=== PATIENT | female | born 1960 | race Caucasian/White ===

== ENCOUNTER 2016-09-25 04:53 | Observation (INO) ==
--- NOTE | 2016-09-25 05:26 | Emergency Department Note ---
Disposition Clinical Impression: Shoulder pain, acute Qualifiers: Laterality: right Qualified Code(s): M25.511 - Pain in right shoulder Disposition: Still a Patient Condition: Undetermined Referrals: Agustin Jacobo MD [Primary Care Provider] - Forms: ED Satisfaction Letter General Adult HPI - General Chief complaint: ED Extremity Injury, Upper Stated complaint: "Right Shoulder Pain/Can't Raise Arm" Time Seen by Provider: 09/25/16 05:02 Source: patient Limitations: no limitations Nursing Notes Reviewed: Yes Vital Signs Reviewed: Yes - History of Present Illness HPI Narrative: 56-year-old female who reports she has had 2 days of atraumatic right shoulder pain. She denies having pain in that shoulder before. She also states that yesterday she had a fever but none today. She does mention that she has had a cough and has been on antibiotics. She says she has pain on any movement of the shoulder. She denies having any problems with that shoulder in the past. She denies any trauma to the shoulder. She denies any immunocompromised state such as diabetes. Radiation: non-radiation Pain Severity: severe Pain Scale: 10 Consistency: constant Improves with: rest Worsens with: movement Associated symptoms: Reports: denies other symptoms Treatments Prior to Arrival: none - Related Data Home Medications Medication Instructions Recorded Confirmed Cyclobenzaprine [Flexeril] 10 mg PO BID 01/02/15 01/18/16 Gabapentin [Neurontin] 600 mg PO TID 01/02/15 01/18/16 Levothyroxine [Synthroid] 100 mcg PO DAILY 01/02/15 01/18/16 Lisinopril [Zestril] 40 mg PO DAILY 01/02/15 01/18/16 Omeprazole [PriLOSEC] 40 mg PO DAILY 01/02/15 01/18/16 Pantoprazole Sodium 40 mg PO DAILY 01/02/15 01/18/16 Torsemide [Demadex] 20 mg PO DAILY 01/02/15 01/18/16 Primidone [Mysoline] 50 mg PO BID 01/14/16 01/18/16 Ropinirole HCl [Requip] 0.5 mg PO HS 01/14/16 01/18/16 Sennosides [Senna] 17.2 mg PO BID 01/14/16 01/18/16 Previous Rx's Medication Instructions Recorded Aspirin Enteric Coated [Aspirin EC] 325 mg PO DAILY #21 tablet. 01/14/16 ALPRAZolam [Xanax 0.5 MG Tablet] 0.5 mg PO HS #20 tablet 01/16/16 levoFLOXacin [Levofloxacin] 750 mg PO DAILY #3 tablet 01/20/16 traMADol [Ultram] 50 mg PO Q6H PRN #10 tablet 01/20/16 Allergies Allergy/AdvReac Type Severity Reaction Status Date / Time doxycycline Allergy Nausea Verified 01/18/16 11:53 All systems ED: reviewed and negative except as stated. Constitutional: Reports: fever Eyes: Denies: vision change ENT ED: Denies: throat pain Cardiovascular: Denies: chest pain Respiratory: Reports: cough Gastrointestinal: Denies: abdominal pain, nausea, vomiting Genitourinary: Denies: dysuria Musculoskeletal: Denies: back pain Integumentary: Denies: rash Past Medical History - Past Medical History Medical history: Reports: arthritis, asthma, COPD, fibromyalgia, GERD, hypertension, osteoporosis, RA, thyroid disease, other Surgical history: Reports: knee replacement, orthopedic, other (Spine surgery.) , other (Tubal ligation.6. EGD.) Psychiatric history: Reports: anxiety, depression, other - Social History Smoking Status: Former smoker Smokeless Tobacco Status: No Alcohol use: Reports: none Drug use: Reports: none Physical Exam - General Limitations: no limitations General appearance: alert, in no apparent distress - Head Head exam: atraumatic - Eye Eye exam: Present: normal appearance, PERRL - ENT ENT exam: normal exam, normal oropharynx - Neck Neck exam: Present: normal inspection - Chest Chest inspection: Present: normal inspection - Respiratory Respiratory exam: Present: normal lung sounds bilaterally. Absent: respiratory distress - Cardiovascular Cardiovascular exam: Present: regular rate, normal rhythm - Abdominal Exam Abdominal exam: Present: soft, Non-Tender - Extremities Exam Extremities exam: Present: normal inspection, other (No erythema of the shoulder is present. It is slightly warm to the touch. There is no crepitus. She has most pain on attempted abduction. She also has pain in every other plane of movement.) - Back Exam Back exam: Present: normal inspection - Neurological Exam Neurological exam: Present: alert, oriented X3 - Psychiatric Psychiatric exam: Present: normal affect, normal mood - Skin Skin exam: Present: warm, dry Course Course Narrative: Due to the fever that she had yesterday and atraumatic shoulder pain with some mild warmth of the shoulder I will obtain an ESR and a CRP and a CBC. This is to evaluate for possible septic joint. I will also obtain a CT scan of the shoulder to look for anatomic abnormalities. Pulses 2+ in UE bilaterally. Full sensation in hands bilaterally. - Reevaluation(s) Reevaluation #1: Elevated ESR and CRP. Arthrocentesis attempted without success. Spoke with Dr Bautista who recommended a stat MRI of the shoulder and he will sent someone down to evaluate the patient. this patient has been signed out to the day team for final disposition pending orthopedics recs. Vital Signs Temperature 97.9 F 09/25/16 04:54 Pulse Rate 94 09/25/16 04:54 Respiratory Rate 18 09/25/16 04:54 Blood Pressure 165/93 09/25/16 04:54 O2 Sat by Pulse Oximetry 95 09/25/16 04:54 Temperature 97.9 F 09/25/16 04:54 Pulse Rate 94 09/25/16 04:54 Respiratory Rate 18 09/25/16 04:54 Blood Pressure 165/93 09/25/16 04:54 O2 Sat by Pulse Oximetry 95 09/25/16 04:54 Oxygen Delivery Oxygen Delivery Room Air Medical Decision Making - Medical Records Medical records reviewed: Yes I reviewed the patient's medical records. - Lab Data Lab results reviewed: Yes I reviewed the patient's lab results. Result diagrams: 09/25/16 05:53 09/25/16 05:53 Lab Results 09/25/16 09/25/16 09/25/16 Range/Units 05:53 05:53 05:53 WBC 8.9 (4.3-11.1) K/mcL RBC 5.26 H (3.82-4.97) M/mcL Hgb 13.5 (11.5-15.4) g/dL Hct 42.8 (35.3-44.9) % MCV 81.4 L (83.0-100.0) fL MCH 25.7 L (28.0-33.3) pg MCHC 31.5 L (31.6-35.5) g/dL RDW 15.2 H (11.5-14.5) % Plt Count 313 (140-400) K/mcL MPV 9.6 (9.4-12.4) fL Immature Gran % 0.3 (0-4) % Seg Neutrophils % 71.5 % Lymphocytes % 17.6 % Monocytes % 8.0 % Eosinophils % 2.0 % Basophils % 0.6 % Neutrophils # 6.3 (1.6-8.9) K/mcL Lymphocytes # 1.6 (0.6-4.6) K/mcL Monocytes # 0.7 (0.0-1.3) K/mcL Eosinophils # 0.2 (0.0-0.6) K/mcL Basophils # 0.1 (0.0-0.2) K/mcL ESR 110 H (0-15) mm/hr Sodium 139 (136-145) mEq/L Potassium 4.0 (3.5-4.5) mEq/L Chloride 102 (98-109) mEq/L Carbon Dioxide 29 (19-29) mEq/L BUN 11 (7-20) mg/dL Creatinine 1.00 (0.57-1.11) mg/dL Est GFR ( Amer) > 60 (> 60) Est GFR (Non-Af Amer) 57 L (> 60) BUN/Creatinine Ratio 11 (6-26) Glucose 140 H (70-99) mg/dL Calculated Osmolality 290 (280-300) Calcium 9.5 (8.6-10.8) mg/dL C-Reactive Protein 51 H (Less than 5) mg/L Attestation Statement - Attestation Attestation: I, Dov Rowley MD, personally evaluated this patient and discussed their management with the resident physician. I reviewed the resident's note and agree with the documented findings, medical decision making, and plan of care. 56-year-old female presents to the emergency department with a complaint of right shoulder pain which started 2 days prior to arrival and is gotten progressively worse. She denies any injury to the shoulder. No prior history of similar episodes. The pain is worse with movement of the shoulder. No neck pain. No numbness or weakness. She states her fingers did feel a little tingly earlier but this has resolved. Patient also states that she had a low- grade fever yesterday. She has had a productive cough with green sputum and is taking antibiotics presently. On examination patient is a well-developed obese female in no acute distress. She is alert and oriented 3. There is no cyanosis or diaphoresis. Neck is supple and nontender with full range of motion. There is diffuse tenderness over the right shoulder with range of motion limited secondary to pain. The right shoulder does feel slightly warm to touch compared to the left. There is no erythema noted. No obvious swelling. Neurovascular function is intact distally. Breath sounds are clear and equal bilaterally. Heart regular rate and rhythm. Labs reviewed. WBC normal. ESR 110. CRP 51. CT of the right shoulder was obtained and results are pending. Dr. Rodríguez attempted arthrocentesis unsuccessfully. We consulted the orthopedist on-call, Dr. Bautista, and he requested a stat MRI of the shoulder and will send someone to evaluate the patient in the emergency department. Patient is being signed out to the oncoming dayshift team under Dr. Arcos.
[2016-09-25 06:03] LABS: Basophils # 0.1 K/mcL (0.0-0.2); Basophils % 0.6 %; Eosinophils # 0.2 K/mcL (0.0-0.6); Hematocrit 42.8 % (35.3-44.9); Hemoglobin 13.5 g/dL (11.5-15.4); Immature Granulocytes % 0.3 % (0-4); Lymphocytes # 1.6 K/mcL (0.6-4.6); Lymphocytes % 17.6 %; Mean Corpuscular HGB Conc 31.5 g/dL (31.6-35.5); Mean Corpuscular Hemoglobin 25.7 pg (28.0-33.3); Mean Corpuscular Volume 81.4 fL (83.0-100.0); Mean Platelet Volume 9.6 fL (9.4-12.4); Monocytes # 0.7 K/mcL (0.0-1.3); Neutrophils # 6.3 K/mcL (1.6-8.9); Platelet Count 313 K/mcL (140-400); Red Blood Count 5.26 M/mcL (3.82-4.97); Red Cell Distribution Width 15.2 % (11.5-14.5); Segmented Neutrophils % 71.5 %
[2016-09-25 06:15] LABS: BUN/Creatinine Ratio 11 (6-26); Blood Urea Nitrogen 11 mg/dL (7-20); C-Reactive Protein 51 mg/L (Less than 5); Calcium 9.5 mg/dL (8.6-10.8); Carbon Dioxide 29 mEq/L (19-29); Chloride 102 mEq/L (98-109); Glucose 140 mg/dL (70-99); Osmolality,Calculated 290 (280-300); Sodium 139 mEq/L (136-145); eGFR For African Americans > 60 (> 60); eGFR For Non-African Americans 57 (> 60)
[2016-09-25] MEDS ORDERED: *HR* LORazepam 2 MG/ML VIAL IVP ONE ×2 (07:40→07:57)
--- NOTE | 2016-09-25 07:44 | Emergency Department Note ---
Disposition Clinical Impression: Septic joint of right shoulder region Shoulder pain, acute Qualifiers: Laterality: right Qualified Code(s): M25.511 - Pain in right shoulder Disposition: Admitted As Inpatient Condition: Fair Time of Disposition: 10:51 General Adult HPI - General Chief complaint: ED Extremity Injury, Upper Stated complaint: "Right Shoulder Pain/Can't Raise Arm" Time Seen by Provider: 09/25/16 05:02 Source: patient Limitations: no limitations Nursing Notes Reviewed: Yes Vital Signs Reviewed: Yes - History of Present Illness Pain Scale: 10 Improves with: rest Worsens with: movement Associated symptoms: Reports: denies other symptoms Treatments Prior to Arrival: none - Related Data Home Medications Medication Instructions Recorded Confirmed Gabapentin [Neurontin] 600 mg PO TID 01/02/15 09/25/16 Levothyroxine [Synthroid] 100 mcg PO DAILY 01/02/15 09/25/16 Lisinopril [Zestril] 40 mg PO DAILY 01/02/15 09/25/16 Omeprazole [PriLOSEC] 40 mg PO DAILY 01/02/15 09/25/16 Ropinirole HCl [Requip] 0.5 mg PO HS 01/14/16 09/25/16 Sennosides [Senna] 17.2 mg PO BID 01/14/16 09/25/16 Albuterol Sulfate [Ventolin Hfa] 2 puff IH Q4H PRN 09/25/16 09/25/16 Meloxicam 15 mg PO DAILY 09/25/16 09/25/16 Oxycodone HCl [Roxicodone 30 MG 30 mg PO Q6HR PRN 09/25/16 09/25/16 Immed Release] Previous Rx's Medication Instructions Recorded Aspirin Enteric Coated [Aspirin EC] 325 mg PO DAILY #21 tablet. 01/14/16 ALPRAZolam [Xanax 0.5 MG Tablet] 0.5 mg PO HS #20 tablet 01/16/16 Allergies Allergy/AdvReac Type Severity Reaction Status Date / Time doxycycline Allergy Hives Verified 09/25/16 10:54 Constitutional: Reports: fever Eyes: Denies: vision change ENT ED: Denies: throat pain Cardiovascular: Denies: chest pain Respiratory: Reports: cough Gastrointestinal: Denies: abdominal pain, nausea, vomiting Genitourinary: Denies: dysuria Musculoskeletal: Denies: back pain Integumentary: Denies: rash Past Medical History - Past Medical History Medical history: Reports: arthritis, asthma, COPD, fibromyalgia, GERD, hypertension, osteoporosis, RA, thyroid disease, other Surgical history: Reports: knee replacement, orthopedic, other (Spine surgery.) , other (Tubal ligation.6. EGD.) Psychiatric history: Reports: anxiety, depression, other - Social History Smoking Status: Former smoker Smokeless Tobacco Status: No Alcohol use: Reports: none Drug use: Reports: none Physical Exam - General Limitations: no limitations General appearance: alert, in no apparent distress Course Course Narrative: Assumed care from day team. Patient seen and examined. Right shoulder pain for 2 days. Had a fever yesterday up to 101. Decreased range of motion and extreme pain with palpation. Concern for septic joint. Elevated ESR and CRP. Afebrile currently. Dr. Bautista was already notified and will send someone down for evaluation. He also requested an MRI of the right shoulder. This was ordered though patient feels claustrophobic. We will try Ativan and reattempt. - Reevaluation(s) Reevaluation #1: Patient's MRI shows severe bursitis with septations. There is also a supraspinatous tear that is unknown if it is chronic or acute. Spoke with orthopedic LOPEZ Giordano who states Dr.: Looked at the MRI images and would like interventional radiology to attempt aspiration of this. IR was contacted and will do the aspiration. Time: 10:28 Reevaluation #2: Orthopedics would like patient to be admitted to the hospitalist service. No antibiotics until after aspiration. Will consult. I spoke with hospitalist Dr. Nettles who has accepted patient for admission. Time: 10:51 Vital Signs Temperature 97.9 F 09/25/16 04:54 Pulse Rate 94 09/25/16 04:54 Respiratory Rate 18 09/25/16 04:54 Blood Pressure 165/93 09/25/16 04:54 O2 Sat by Pulse Oximetry 95 09/25/16 04:54 Temperature 98.2 F 09/25/16 15:53 Pulse Rate 90 09/25/16 15:53 Respiratory Rate 16 09/25/16 15:53 Blood Pressure 128/83 09/25/16 15:53 O2 Sat by Pulse Oximetry 98 09/25/16 15:53 Oxygen Delivery Oxygen Delivery Room Air Medical Decision Making - Medical Records Medical records reviewed: Yes I reviewed the patient's medical records. - Lab Data Lab results reviewed: Yes I reviewed the patient's lab results. Result diagrams: 09/25/16 05:53 09/25/16 05:53 Lab Results 09/25/16 09/25/16 09/25/16 Range/Units 05:53 05:53 05:53 WBC 8.9 (4.3-11.1) K/mcL RBC 5.26 H (3.82-4.97) M/mcL Hgb 13.5 (11.5-15.4) g/dL Hct 42.8 (35.3-44.9) % MCV 81.4 L (83.0-100.0) fL MCH 25.7 L (28.0-33.3) pg MCHC 31.5 L (31.6-35.5) g/dL RDW 15.2 H (11.5-14.5) % Plt Count 313 (140-400) K/mcL MPV 9.6 (9.4-12.4) fL Immature Gran % 0.3 (0-4) % Seg Neutrophils % 71.5 % Lymphocytes % 17.6 % Monocytes % 8.0 % Eosinophils % 2.0 % Basophils % 0.6 % Neutrophils # 6.3 (1.6-8.9) K/mcL Lymphocytes # 1.6 (0.6-4.6) K/mcL Monocytes # 0.7 (0.0-1.3) K/mcL Eosinophils # 0.2 (0.0-0.6) K/mcL Basophils # 0.1 (0.0-0.2) K/mcL ESR 110 H (0-15) mm/hr Sodium 139 (136-145) mEq/L Potassium 4.0 (3.5-4.5) mEq/L Chloride 102 (98-109) mEq/L Carbon Dioxide 29 (19-29) mEq/L BUN 11 (7-20) mg/dL Creatinine 1.00 (0.57-1.11) mg/dL Est GFR ( Amer) > 60 (> 60) Est GFR (Non-Af Amer) 57 L (> 60) BUN/Creatinine Ratio 11 (6-26) Glucose 140 H (70-99) mg/dL Calculated Osmolality 290 (280-300) Calcium 9.5 (8.6-10.8) mg/dL C-Reactive Protein 51 H (Less than 5) mg/L - Radiology Data Radiology results reviewed: Yes I reviewed the patient's radiology results. Shoulder CT 09/25/16 05:14 IMPRESSION: No acute findings. Mild degenerative changes. D/ / Kellie Butler MD / Kellie Butler MD Interpreting Provider: Kellie Butler MD Chest X-Ray 09/25/16 05:18 IMPRESSION: No active cardiopulmonary disease. D/ / Jamison Ireland MD / Jamison Ireland MD Interpreting Provider: Jamison Ireland MD Shoulder MRI 09/25/16 06:48 IMPRESSION: 1. Severe subacromial/subdeltoid bursitis with multiple intrinsic septations. Cannot exclude superimposed infection within the bursa. 2. AC DJD with subacromial spurring. 3. Thin, 2 mm focal full-thickness tear anterior supraspinatus extending along the articular fibers. 4. Labral degeneration without tear. D/ / 09/25/2016 09:38:54 Phill Vann MD / trini Interpreting Provider: Phill Vann MD Attestation Statement - Attestation Attestation: I, Aleksandr Arcos, examined this patient and my medical decision-making was reviewed with the MARKET SPECIALIST/PA/Advanced Practice Nurse/Resident Physician. I agree with the documented findings, disposition and treatment plan as described except to the extent set forth below. 56-year-old female received in sign out at start of my shift pending MRI of the right shoulder for evaluation of possible septic arthritis. MRI shows inflammation of the first with multiple internal septae. Orthopedics was counseled to to recommended aspiration by interventional radiology. Interventional radiology will be able to take the patient for multiple hours. Patient was admitted to the hospital for further care and evaluation. Patient felt comfortable with this plan and will be seen by orthopedics, again on the floor.
[2016-09-25] MEDS ORDERED: Ondansetron 4 MG/2 ML VIAL IVP ONE (10:26)
[2016-09-25] MEDS ORDERED: *HR* HYDROmorphone (PF) 1 MG/ML SYRINGE IVP ONE (10:26)
[2016-09-25] MEDS ORDERED: *HR* HYDROmorphone (PF) 1 MG/ML SYRINGE IVP PRN (11:51)
[2016-09-25] MEDS ORDERED: Naloxone 0.4 MG/ML INJ IVP PRN (11:51)
[2016-09-25] MEDS ORDERED: Ondansetron 4 MG/2 ML VIAL IVP PRN (11:51)
--- NOTE | 2016-09-25 11:58 | Internal Med History&Physical ---
Date of Encounter: 09/25/16 Time of Encounter: 11:45 Assessment and Plan (1) Shoulder pain, acute Current visit: Yes Status: Acute Right shoulder pain with associated fever of 101 and decrease ROM for 2 days. No injury to her shoulder. Suspected Acute shoulder bursitis. r/o septic arthritis. elevated ESR and CRP. MRI of right shoulder showed severe subacromial/subdeltoid bursitis with multiple intrinsic septations. AC DJD with subacromial spurring. Tear and edema of the supraspinatus tendon. Patient underwent aspiration of right shoulder bursa. Synovial fluid analysis is pending. Check blood cultures. Start IV Vancomycin. pain control. Orthopedic service consulted. Qualifiers: Laterality: right Qualified Code(s): M25.511 - Pain in right shoulder (2) Septic joint of right shoulder region Current visit: Yes Status: Suspected plan as above. Qualifiers: Septic arthritis organism: due to unspecified organism Qualified Code(s): M00.9 - Pyogenic arthritis, unspecified (3) COPD (chronic obstructive pulmonary disease) Current visit: Yes Status: Acute nebs prn. Qualifiers: COPD type: chronic bronchitis Chronic bronchitis type: simple Qualified Code(s): J41.0 - Simple chronic bronchitis (4) Hypertension Current visit: No Status: Chronic elevated BP at 167/107 that could be from pain. Stat IV hydralazine. IV pain meds. continue home meds. hydralazine prn. Qualifiers: Hypertension type: essential hypertension Qualified Code(s): I10 - Essential (primary) hypertension Internal Medicine - H&P: HPI Chief complaint: worsening of Right shoulder pain for 2 days Admitted From: Home Plans for Post Hospital Care: Home History of present illness: Ms. Donaldson is a 56 year old female with past medical history of COPD, HTN and arthritis who reports on and off right shoulder pain for months. Yesterday, her pain worsen, she spiked a fever of 101 and she had difficulty moving her shoulder. Her symptoms progressed and pain was so severe this morning that she came to our ED. She denies any injury to her shoulder. No nausea, no vomiting, no other joint pain, no skin rash, no abdominal pain, chronic diarrhea alternating with constipation due to pain medications, bleeding, or focal deficits. Past Med Surg Social Fam HX - Past Medical History Medical history: arthritis, asthma, COPD, fibromyalgia, GERD, hypertension, osteoporosis, RA, thyroid disease, other Psychiatric history: anxiety, depression, other - Past Surgical History Surgical History: knee replacement, orthopedic, other (Spine surgery.), other ( Tubal ligation.6. EGD.) - Social History Smoking Status: Former smoker Smokeless Tobacco Status: No Alcohol use: none Drug use: none - Family History Father Hx Family Cardiac Disorders: Yes Hx Family Respiratory Disorders: Yes Internal Medicine - H&P: Meds Gabapentin [Neurontin] 600 mg PO TID 01/02/15 [History] Levothyroxine [Synthroid] 100 mcg PO DAILY 01/02/15 [History] Lisinopril [Zestril] 40 mg PO DAILY 01/02/15 [History] Omeprazole [PriLOSEC] 40 mg PO DAILY 01/02/15 [History] Aspirin Enteric Coated [Aspirin EC] 325 mg PO DAILY #21 tablet. 01/14/16 [Rx] Ropinirole HCl [Requip] 0.5 mg PO HS 01/14/16 [History] Sennosides [Senna] 17.2 mg PO BID 01/14/16 [History] ALPRAZolam [Xanax 0.5 MG Tablet] 0.5 mg PO HS #20 tablet 01/16/16 [Rx] Albuterol Sulfate [Ventolin Hfa] 2 puff IH Q4H PRN 09/25/16 [History] Meloxicam 15 mg PO DAILY 09/25/16 [History] Oxycodone HCl [Roxicodone 30 MG Immed Release] 30 mg PO Q6HR PRN 09/25/16 [ History] Allergies doxycycline Allergy (Verified 09/25/16 10:54) Hives All Systems PM: A 10-system review of systems was performed and is negative for pertinent findings except as documented above in the HPI. - Constitutional Vitals: Temp Pulse Resp BP Pulse Ox 97.9 F 107 18 167/107 96 09/25/16 04:54 09/25/16 10:41 09/25/16 11:12 09/25/16 11:12 09/25/16 10:41 General appearance: Present: cooperative, A&O X 3, no acute distress, obese, severe distress, answers questions appropriately - Neck Neck exam general surgery: Present: supple, trachea midline. Absent: lymphadenopathy - Respiratory Respiratory exam: Present: CTAB - Cardiovascular Cardiovascular exam: Present: RRR - GI/Abdominal GI/Abdominal exam: Present: normal bowel sounds, soft. Absent: distended, tenderness - Extremities Exam Extremities exam: Absent: pedal edema Additional comments: Right shoulder: swelling and warm sensation at anterior site. s/p aspiration. - Back Exam Back exam: Absent: CVA tenderness (L), CVA tenderness (R) - Neurological Exam Neurological exam: Present: alert, no focal deficits. Absent: facial droop, speech deficit - Skin Skin exam: Absent: rash Internal Med - H&P Results - Labs CBC & Chem 7: 09/25/16 05:53 09/25/16 05:53
--- NOTE | 2016-09-25 12:17 | IR Procedure Note ---
Date of procedure: 09/25/16 Consent Obtained: Verbal consent, Written consent Timeout: Correct patient and procedure verified, Correct site verified, Time out performed, Skin prep completed Local anesthetic: Lidocaine 1% Indications: Bursal fluid collection Procedure Performed: Right shoulder bursa aspiration Site/Technique: US guided bursa aspiration Results/Findings: 6 cc complex fluid Estimated blood loss (cc): 2 Complications: None; Tolerated procedure well Post Procedure Treatment Plan: Continue preprocedure care
--- NOTE | 2016-09-25 12:54 | Orthopedic Consult Note ---
Date of Encounter: 09/25/16 Time of Encounter: 12:30 Assessment and Plan (1) Subacromial bursitis of right shoulder joint Current Visit: Yes Status: Acute Based off PE findings, MRI, and aspiration results, low suspicion of septic shoulder. However, secondary to her pain and lack of ROM, concern for subacromial bursitis. Awaiting cell count, crystals and culture. She does have an elevated ESR to 110, and swelling into her upper extremities, including her hand/wrist. I have encouraged gentle ROM, PT/OT as tolerated. I have asked to evaluate the patient as well. At this point, plan to hold off on ABX until final cultures results. Plan to f/up outpatient. History of Present Illness Chief complaint: Right Shoulder Pain HPI: Ms. Donaldson is a 56 year old female, reported to ED due to severe Right Shoulder pain and immobility x 2 days. Patient states she's had mild shoulder pain x 1 month, but yesterday morning she woke up with severe pain in right shoulder and was unable to move it. She denies N/T. Pain worsens with movement - flexion and IR/ER are the most difficult. Unable to lift anything. Denies any specific trauma or injury. Today, in ED, MRI ordered: 1. Severe subacromial/subdeltoid bursitis with multiple intrinsic septations. Cannot exclude superimposed infection within the bursa. 2. AC DJD with subacromial spurring. 3. Thin, 2 mm focal full-thickness tear anterior supraspinatus extending along the articular fibers. 4. Labral degeneration without tear. MRI Reviewed with . Orthopedics consulted to r/o septic shoulder. IR performed Fluro-guided aspiration of subacromial bursa. 6 cc of mcwilliams colored, gritty fluid pulled. Gram Stain has been negative for bacteria, moderate WBCs. Awaiting cultures and cell count, crystals ordered as well. On PE: Right Shoulder: Diffuse swelling noted, No ecchymosis or erythema noted. Mild warmth noted. Tenderness to Acromion and AC joint. ROM limited - PROM limited, secondary to pain. AROM limited in all directions. Strength is difficult to assess secondary to ROM limitations. NV intact. Past Med Surg Social Fam HX - Past Medical History Medical history: arthritis, asthma, COPD, fibromyalgia, GERD, hypertension, osteoporosis, RA, thyroid disease, other Psychiatric history: anxiety, depression, other - Past Surgical History Surgical History: knee replacement, orthopedic, other (Spine surgery.), other ( Tubal ligation.6. EGD.) - Social History Smoking Status: Former smoker Smokeless Tobacco Status: No Alcohol use: none Drug use: none - Family History Father Hx Family Cardiac Disorders: Yes Hx Family Respiratory Disorders: Yes Medications and Allergies Gabapentin [Neurontin] 600 mg PO TID 01/02/15 [History] Levothyroxine [Synthroid] 100 mcg PO DAILY 01/02/15 [History] Lisinopril [Zestril] 40 mg PO DAILY 01/02/15 [History] Omeprazole [PriLOSEC] 40 mg PO DAILY 01/02/15 [History] Aspirin Enteric Coated [Aspirin EC] 325 mg PO DAILY #21 tablet.dr 01/14/16 [Rx] Ropinirole HCl [Requip] 0.5 mg PO HS 01/14/16 [History] Sennosides [Senna] 17.2 mg PO BID 01/14/16 [History] ALPRAZolam [Xanax 0.5 MG Tablet] 0.5 mg PO HS #20 tablet 01/16/16 [Rx] Albuterol Sulfate [Ventolin Hfa] 2 puff IH Q4H PRN 09/25/16 [History] Meloxicam 15 mg PO DAILY 09/25/16 [History] Oxycodone HCl [Roxicodone 30 MG Immed Release] 30 mg PO Q6HR PRN 09/25/16 [ History] Allergies doxycycline Allergy (Verified 09/25/16 10:54) Hives All Systems Reviewed: A 10-system review of systems was performed and is negative for pertinent findings except as documented above in the HPI. - Constitutional Constitutional: as per HPI - Cardiovascular Cardiovascular: as per HPI - Respiratory Respiratory: as per HPI - Musculoskeletal Musculoskeletal: as per HPI, joint swelling, muscle weakness, stiffness, no numbness, no radiating pain into limb Additional comments: Diffuse edema to upper extremities. Physical Exam - Constitutional Vitals: Temp Pulse Resp BP Pulse Ox 97.9 F 107 18 167/107 96 09/25/16 04:54 09/25/16 10:41 09/25/16 11:12 09/25/16 11:12 09/25/16 10:41 - Shoulder right Appearance shoulder: effusion Effusion grade shoulder exam: Yes Results - Labs Result Diagrams: 09/25/16 05:53 09/25/16 05:53 Labs: Abnormal lab results RBC 5.26 M/mcL (3.82-4.97) H 09/25/16 05:53 MCV 81.4 fL (83.0-100.0) L 09/25/16 05:53 MCH 25.7 pg (28.0-33.3) L 09/25/16 05:53 MCHC 31.5 g/dL (31.6-35.5) L 09/25/16 05:53 RDW 15.2 % (11.5-14.5) H 09/25/16 05:53 ESR 110 mm/hr (0-15) H 09/25/16 05:53 Est GFR (Non-Af Amer) 57 (> 60) L 09/25/16 05:53 Glucose 140 mg/dL (70-99) H 09/25/16 05:53 C-Reactive Protein 51 mg/L (Less than 5) H 09/25/16 05:53 All other labs normal. - Diagnostic results Shoulder MRI: report reviewed, image reviewed Consult Discharge Plan - Plan Referrals: Agustin Jacobo MD [Primary Care Provider] -
[2016-09-25] MEDS ORDERED: Vancomycin 1,500 MG in D5% in Water 250 ML IVPB SCH (13:00)
[2016-09-25] MEDS: Pantoprazole 40 MG VIAL IVP SCH (14:15)
[2016-09-25] MEDS: *HR* HYDROcodone/Acet 5/325 mg TABLET PO PRN (14:15)
[2016-09-25] MEDS ORDERED: Vancomycin 2,000 MG in D5% in Water 500 ML IVPB ONE (15:00)
[2016-09-25] MEDS: *HR* Heparin 5,000 UNIT/ML VIAL SQ SCH (16:50)
--- NOTE | 2016-09-25 17:39 | Orthopedics Progress Note ---
Date of Encounter: 09/25/16 Time of Encounter: 17:37 Subjective Interval history: Patient was seen today at around 5 PM. Patient was talking on the phone was in no acute distress. I have reviewed the patient's MRI which showed fluid in the subacromial space. No fluid within the joint. This was aspirated by interventional radiology Gram stain was negative. On physical exam patient in no acute distress has minimal pain with rotation of the shoulder and flexion and extension. No significant erythema no significant swelling. Neurovascular intact. Gram stain is negative culture still pending. This is an extra-articular fluid collection with low suspicion of infectious based on the Gram stain. Physical exam does not support an intra-articular process recommendation would be to look for another source of a potential infection, IV antibiotics until cultures are resulted in an discharge on a specific by mouth antibiotic. Objective Vital signs: Vital Signs Temp Pulse Resp BP Pulse Ox 09/25/16 15:53 98.2 F 90 16 128/83 98 09/25/16 13:07 98.2 F 110 16 131/80 94 09/25/16 12:55 98.1 F 105 14 160/99 95 09/25/16 11:12 18 167/107 Intake and Output 09/25/16 09/25/16 09/25/16 07:59 15:59 23:59 Intake Total 0 / 0 Balance 0 / 0 Intake: Oral 0 / 0 Other: Weight 120.2 kg Patient Weight 09/25/16 23:59 Weight 120.2 kg - Labs CBC & BMP: 09/25/16 05:53 09/25/16 05:53 Labs: Abnormal lab results RBC 5.26 M/mcL (3.82-4.97) H 09/25/16 05:53 MCV 81.4 fL (83.0-100.0) L 09/25/16 05:53 MCH 25.7 pg (28.0-33.3) L 09/25/16 05:53 MCHC 31.5 g/dL (31.6-35.5) L 09/25/16 05:53 RDW 15.2 % (11.5-14.5) H 09/25/16 05:53 ESR 110 mm/hr (0-15) H 09/25/16 05:53 Est GFR (Non-Af Amer) 57 (> 60) L 09/25/16 05:53 Glucose 140 mg/dL (70-99) H 09/25/16 05:53 C-Reactive Protein 51 mg/L (Less than 5) H 09/25/16 05:53 Consult Discharge Plan - Plan Referrals: Agustin Jacobo MD [Primary Care Provider] -
[2016-09-25 19:14] LABS: Source,Synovial Fluid RIGHT SUBACROIAL BUR
[2016-09-25 19:15] LABS: Appearance,Synovial Fluid Cloudy (Clear-Hazy); Color,Synovial Fluid Amber (Straw)
[2016-09-26] MEDS: *HR* HYDROcodone/Acet 5/325 mg TABLET PO PRN ×4 (00:58→22:05)
[2016-09-26 04:59] LABS: Basophils % 0.4 %; Eosinophils # 0.2 K/mcL (0.0-0.6); Eosinophils % 3.1 %; Hematocrit 37.9 % (35.3-44.9); Hemoglobin 12.1 g/dL (11.5-15.4); Immature Granulocytes % 0.1 % (0-4); Lymphocytes # 1.8 K/mcL (0.6-4.6); Lymphocytes % 24.2 %; Mean Corpuscular HGB Conc 31.9 g/dL (31.6-35.5); Mean Corpuscular Hemoglobin 26.2 pg (28.0-33.3); Mean Corpuscular Volume 82.2 fL (83.0-100.0); Monocytes # 0.5 K/mcL (0.0-1.3); Monocytes % 7.1 %; Neutrophils # 4.8 K/mcL (1.6-8.9); Platelet Count 276 K/mcL (140-400); Red Blood Count 4.61 M/mcL (3.82-4.97); Red Cell Distribution Width 15.3 % (11.5-14.5); Segmented Neutrophils % 65.1 %
[2016-09-26] MEDS: Vancomycin 1,500 MG in D5% in Water 250 ML IVPB SCH ×2 (05:00→16:25)
[2016-09-26 05:04] LABS: INR 1.1; Prothrombin Time 12.4 Seconds (9.4-12.1)
[2016-09-26 05:07] LABS: Activated Partial Thrombo Time 29.6 Seconds (26.0-36.0)
[2016-09-26 05:26] LABS: Alanine Aminotransferase 18 Units/L (0-55); Albumin/Globulin Ratio 0.8 (1.1-2.2); Alkaline Phosphatase 100 Units/L (38-126); Aspartate Amino Transferase 16 Units/L (5-34); BUN/Creatinine Ratio 10 (6-26); Bilirubin,Total 0.8 mg/dL (0.2-1.2); Blood Urea Nitrogen 9 mg/dL (7-20); Calcium 9.1 mg/dL (8.6-10.8); Carbon Dioxide 29 mEq/L (19-29); Chloride 103 mEq/L (98-109); Globulin 3.9 g/dL (2.4-3.5); Glucose 122 mg/dL (70-99); Magnesium 1.8 mg/dL (1.6-2.6); Osmolality,Calculated 284 (280-300); Phosphorous 2.8 mg/dL (2.3-4.7); Sodium 137 mEq/L (136-145); Total Protein 6.9 g/dL (6.0-8.3); eGFR For African Americans > 60 (> 60); eGFR For Non-African Americans > 60 (> 60)
[2016-09-26] MEDS: *HR* Heparin 5,000 UNIT/ML VIAL SQ SCH ×2 (05:53→16:26)
--- NOTE | 2016-09-26 07:54 | Orthopedics Progress Note ---
Date of Encounter: 09/26/16 Time of Encounter: 07:50 - Assessment and Plan (1) Subacromial bursitis of right shoulder joint Current Visit: Yes Status: Acute Gram Stain negative for bacteria. Cell count - >100,000 - indicative of an infection of subacromial bursa. Awaiting culture results. Plan to continue with IV Vancyomycin antibiotics, if no improvement over the weekend, may need to consider a I&D of the bursa. However, at this time, patient has shown significant improvement in shoulder pain and ROM, and no surgical intervention needed. No evidence of intra-articular involvement. This was discussed with and he agrees with plan. Once cultures result, plan to discharge per hospitalist recommendations on appropriate PO antibiotic if indicated. is on-call this weekend. Please notify him if patient worsens. Patient will have f/up setup for next week in outpatient clinic for: , at 8:15 at [facility] with Jane ARDON. Appt faxed to floor 09/26/16 at 1300. Subjective Principal diagnosis: Acute Right Shoulder Pain Interval history: Patient is Day#2 on hospital stay for Right shoulder pain, suspected Right Infected subacromial bursitits. No evidence of intra-articular involvement at this time. Patient is sitting up, eating breakfast. Pain has significantly improved since yesterday evening with evaluated her. Her shoulder pain has subsided, still with stiffness, but overall her ROM has improved. Denies N/T. Afebrile since admission, no leukocytosis, awaiting re-check of ESR/CRP today. Gram Stain - Negative, no bacteria. Elevated WBCs to > 100,000 with predom neutrophils. Awaiting cultures results. RUE: Swelling noted to anterior shoulder, no ecchymosis or erythema. Minimal tenderness to palpation, AC tenderness noted. ROM improving, comfortable at shoulder level and below. NV intact. Strength not assessed. Objective Vital signs: Vital Signs Temp Pulse Resp BP Pulse Ox 09/26/16 06:44 98.2 F 86 18 133/79 96 09/26/16 00:35 98.3 F 84 15 123/76 96 09/25/16 21:40 98.7 F 88 16 125/78 96 09/25/16 15:53 98.2 F 90 16 128/83 98 09/25/16 13:07 98.2 F 110 16 131/80 94 09/25/16 12:55 98.1 F 105 14 160/99 95 09/25/16 11:12 18 167/107 Intake and Output 09/25/16 09/25/16 09/26/16 15:59 23:59 07:59 Intake Total 0 / 0 240 / 240 250 / 250 Balance 0 / 0 240 / 240 250 / 250 Intake: IV Fluids 250 / 250 Vancocin 1,500 MG In 250 / 250 Dextrose 5% 250 ML @ 166. 67 mls/hr IVPB Q12H [facility] Rx#:[id number] Oral 0 / 0 240 / 240 Other: Meal Dinner Percent of Meal Consumed 95% # Voids 1 Weight 120.2 kg - Diagnostic Results Shoulder MRI: report reviewed, image reviewed - Labs CBC & BMP: 09/26/16 04:14 09/26/16 04:14 Labs: Abnormal lab results MCV 82.2 fL (83.0-100.0) L 09/26/16 04:14 MCH 26.2 pg (28.0-33.3) L 09/26/16 04:14 RDW 15.3 % (11.5-14.5) H 09/26/16 04:14 ESR 110 mm/hr (0-15) H 09/25/16 05:53 PT 12.4 Seconds (9.4-12.1) H 09/26/16 04:14 Glucose 122 mg/dL (70-99) H 09/26/16 04:14 C-Reactive Protein 51 mg/L (Less than 5) H 09/25/16 05:53 Albumin 3.0 g/dL (3.5-5.0) L 09/26/16 04:14 Globulin 3.9 g/dL (2.4-3.5) H 09/26/16 04:14 Albumin/Globulin Ratio 0.8 (1.1-2.2) L 09/26/16 04:14 Synovial RBC 0.027 M/mcl (0.000-0.002) H 09/25/16 12:05 Synovial Tot Nuc Cell > 707131 TNC/mcL (0-200) H 09/25/16 12:05 - VTE Documentation of Mechanical Device: Venous foot pump, device Consult Discharge Plan - Plan Referrals: gAustin Jacobo MD [Primary Care Provider] -
[2016-09-26] MEDS: Pantoprazole 40 MG VIAL IVP SCH (08:50)
[2016-09-26] MEDS: Acetaminophen 325 MG TABLET PO PRN (09:01)
--- NOTE | 2016-09-26 11:39 | Internal Med Progress Note ---
Date of Encounter: 09/26/16 Time of Encounter: 08:45 - Assessment and plan (1) Subacromial bursitis of right shoulder joint Current Visit: Yes Status: Acute Assessment and plan: Right shoulder bursitis. Elevated ESR and CRP. IV vancomycin continued. Body fluid culture from the right shoulder aspiration revealed gram-negative bacteria. Orthopedics is following. Anticipate patient to stay over the weekend for antibiotic course. May need I&D, plan as per orthopedics (2) Hypertension Current Visit: No Status: Chronic Assessment and plan: Controlled. Continue to monitor Qualifiers: Hypertension type: essential hypertension Qualified Code(s): I10 - Essential (primary) hypertension (3) COPD (chronic obstructive pulmonary disease) Current Visit: Yes Status: Acute Assessment and plan: Currently not in exacerbation, stable Qualifiers: COPD type: chronic bronchitis Chronic bronchitis type: simple Qualified Code(s): J41.0 - Simple chronic bronchitis (4) Morbid obesity with BMI of 45.0-49.9, adult Current Visit: No Status: Chronic Assessment and plan: Encourage weight loss. Risk factor modification - Time Spent With Patient less than 15 minutes - Subjective Interval history: Patient awake and alert. Not in any acute distress. No fever. Tolerating oral diet. Complains of mild shoulder pain, has improved. Likely has bursitis of right shoulder joint. IV antibiotics to be continued. No other acute events or complaints. Orthopedics following. - Constitutional Vitals: Temp Pulse Resp BP Pulse Ox 98.3 F 79 18 158/81 97 09/26/16 11:01 09/26/16 11:01 09/26/16 11:01 09/26/16 11:01 09/26/16 11:01 General appearance: Present: cooperative, A&O X 3, morbidly obese, no acute distress, answers questions appropriately - Head Head exam: Present: atraumatic - ENT ENT exam: Present: mucous membranes moist - Neck Neck exam general surgery: Present: supple - Respiratory Respiratory exam: Present: CTAB. Absent: rhonchi, wheezes - Cardiovascular Cardiovascular exam: Present: RRR, +S1, +S2 - GI/Abdominal GI/Abdominal exam: Present: soft. Absent: guarding, tenderness - Extremities Exam Extremities exam: Present: pedal edema, radial pulses palpable and symetrical. Absent: cyanotic Additional comments: Right shoulder exam. Minimal pain with rotation of shoulder in flexion and extension neurovascular intact - Neurological Exam Neurological exam: Present: alert, oriented X3, no focal deficits Internal Medicine: Result - Labs CBC & Chem 7: 09/26/16 04:14 09/26/16 04:14 Labs: Short CBC 09/26/16 Range/Units 04:14 WBC 7.3 (4.3-11.1) K/mcL Hgb 12.1 (11.5-15.4) g/dL Hct 37.9 (35.3-44.9) % Plt Count 276 (140-400) K/mcL Neutrophils # 4.8 (1.6-8.9) K/mcL BMP 09/26/16 04:14 Sodium 137 Potassium 4.0 Chloride 103 Carbon Dioxide 29 BUN 9 Creatinine 0.91 Glucose 122 H Calcium 9.1 Liver Function 09/26/16 Range/Units 04:14 Total Bilirubin 0.8 (0.2-1.2) mg/dL AST 16 (5-34) Units/L ALT 18 (0-55) Units/L Alkaline Phosphatase 100 (38-126) Units/L Albumin 3.0 L (3.5-5.0) g/dL - ABG Interpretation ABG results: PT/INR, D-dimer PT 12.4 Seconds (9.4-12.1) H 09/26/16 04:14 - VTE Documentation of Mechanical Device: Venous foot pump, device Consult Discharge Plan - Plan Referrals: Agustin Jacobo MD [Primary Care Provider] -
[2016-09-26] MEDS: Lisinopril 20 MG TABLET PO SCH (18:52)
[2016-09-27] MEDS: Vancomycin 1,500 MG in D5% in Water 250 ML IVPB SCH (02:53)
[2016-09-27] MEDS: *HR* Heparin 5,000 UNIT/ML VIAL SQ SCH ×2 (05:34→18:31)
--- NOTE | 2016-09-27 08:24 | Orthopedics Progress Note ---
Date of Encounter: 09/27/16 Time of Encounter: 08:22 Subjective Principal diagnosis: Acute Right Shoulder Pain Interval history: S: Significant improvement to the right shoulder. No new complaints. Minimal pain. O: Afebrile, VSS No tenderness to the right shoulder. No pain with passive shoulder ROM or active shoulder ROM NV intact to the digits. A: Right shoulder infected subacromial bursitis, doing well on antibiotics. P: Continue antibiotics. Activities as tolerated. No orthopedic surgery indicated at this time. Will be available as needed. Objective Vital signs: Vital Signs Temp Pulse Resp BP Pulse Ox 09/27/16 07:42 98.3 F 80 16 158/98 97 09/27/16 04:08 97.4 F L 72 16 156/97 96 09/26/16 23:50 98.2 F 80 14 166/89 97 09/26/16 19:36 175/97 09/26/16 19:25 98.3 F 79 16 177/107 97 09/26/16 16:46 166/104 09/26/16 15:51 98.1 F 71 16 170/89 98 09/26/16 11:01 98.3 F 79 18 158/81 97 Intake and Output 09/26/16 09/27/16 09/27/16 23:59 07:59 15:59 Intake Total 350 / 350 Balance 350 / 350 Intake: IV Fluids 250 / 250 Vancocin 1,500 MG In 250 / 250 Dextrose 5% 250 ML @ 166. 67 mls/hr IVPB Q12H [facility] Rx#:[id number] Oral 100 / 100 Other: # Voids 1 2 Weight 121.7 kg Patient Weight 09/27/16 23:59 Weight 121.7 kg - Labs CBC & BMP: 09/26/16 04:14 09/26/16 04:14 Labs: Abnormal lab results MCV 82.2 fL (83.0-100.0) L 09/26/16 04:14 MCH 26.2 pg (28.0-33.3) L 09/26/16 04:14 RDW 15.3 % (11.5-14.5) H 09/26/16 04:14 ESR 113 mm/hr (0-15) H 09/27/16 02:10 PT 12.4 Seconds (9.4-12.1) H 09/26/16 04:14 Glucose 122 mg/dL (70-99) H 09/26/16 04:14 C-Reactive Protein 81 mg/L (Less than 5) H 09/27/16 02:10 Albumin 3.0 g/dL (3.5-5.0) L 09/26/16 04:14 Globulin 3.9 g/dL (2.4-3.5) H 09/26/16 04:14 Albumin/Globulin Ratio 0.8 (1.1-2.2) L 09/26/16 04:14 Synovial RBC 0.027 M/mcl (0.000-0.002) H 09/25/16 12:05 Synovial Tot Nuc Cell > [id number] TNC/mcL (0-200) H 09/25/16 12:05 - VTE Documentation of Mechanical Device: Venous foot pump, device Consult Discharge Plan - Plan Referrals: Agustin Jacobo MD [Primary Care Provider] -
[2016-09-27] MEDS: Lisinopril 20 MG TABLET PO SCH (09:41)
[2016-09-27] MEDS: Pantoprazole 40 MG VIAL IVP SCH (09:41)
--- NOTE | 2016-09-27 14:05 | Internal Med Progress Note ---
Date of Encounter: 09/27/16 Time of Encounter: 08:05 - Assessment and plan (1) Subacromial bursitis of right shoulder joint Current Visit: Yes Status: Acute Assessment and plan: Right shoulder bursitis. Elevated ESR and CRP. IV vancomycin continued. Body fluid culture from the right shoulder aspiration - possible gram-negative bacteria. Orthopedics is following. Anticipate patient to stay over the weekend for antibiotic course. (2) Hypertension Current Visit: No Status: Chronic Assessment and plan: Controlled. Continue to monitor. Qualifiers: Hypertension type: essential hypertension Qualified Code(s): I10 - Essential (primary) hypertension (3) COPD (chronic obstructive pulmonary disease) Current Visit: Yes Status: Acute Assessment and plan: Currently not in exacerbation, stable. Qualifiers: COPD type: chronic bronchitis Chronic bronchitis type: simple Qualified Code(s): J41.0 - Simple chronic bronchitis (4) Morbid obesity with BMI of 45.0-49.9, adult Current Visit: No Status: Chronic Assessment and plan: Encourage weight loss. Risk factor modification (5) DVT prophylaxis Current Visit: Yes Status: Acute Assessment and plan: Heparin subcutaneous - Time Spent With Patient less than 15 minutes - Subjective Interval history: Patient awake and alert. Not in any acute distress. No fever. Tolerating oral diet. Right Shoulder pain has improved. Likely has bursitis of right shoulder joint. IV antibiotics to be continued. No other acute events or complaints. Orthopedics following. - Constitutional Vitals: Temp Pulse Resp BP Pulse Ox 98.8 F 75 14 157/91 95 09/27/16 11:17 09/27/16 11:17 09/27/16 11:17 09/27/16 11:17 09/27/16 11:17 General appearance: Present: cooperative, A&O X 3, morbidly obese, no acute distress, answers questions appropriately - Head Head exam: Present: atraumatic - Neck Neck exam general surgery: Present: supple - Respiratory Respiratory exam: Present: CTAB. Absent: rhonchi, wheezes - Cardiovascular Cardiovascular exam: Present: RRR, +S1, +S2 - GI/Abdominal GI/Abdominal exam: Present: soft. Absent: guarding, tenderness - Extremities Exam Extremities exam: Present: full ROM, radial pulses palpable and symetrical. Absent: cyanotic, pedal edema Additional comments: Right shoulder minimal tenderness. Range of motion good - Neurological Exam Neurological exam: Present: alert, oriented X3, no focal deficits Internal Medicine: Result - Labs CBC & Chem 7: 09/26/16 04:14 09/26/16 04:14 - ABG Interpretation ABG results: PT/INR, D-dimer PT 12.4 Seconds (9.4-12.1) H 09/26/16 04:14 - VTE Documentation of Mechanical Device: Venous foot pump, device Consult Discharge Plan - Plan Referrals: Agustin Jacobo MD [Primary Care Provider] -
[2016-09-27] MEDS: *HR* HYDROcodone/Acet 5/325 mg TABLET PO PRN ×2 (15:47→23:18)
[2016-09-27] MEDS: Vancomycin 1,250 MG in D5% in Water 250 ML IVPB SCH (15:51)
[2016-09-28] MEDS: Acetaminophen 325 MG TABLET PO PRN ×2 (02:21→11:37)
[2016-09-28] MEDS: Vancomycin 1,250 MG in D5% in Water 250 ML IVPB SCH (03:06)
[2016-09-28] MEDS: *HR* Heparin 5,000 UNIT/ML VIAL SQ SCH (05:09)
[2016-09-28] MEDS: Lisinopril 20 MG TABLET PO SCH (05:09)
[2016-09-28] MEDS: Pantoprazole 40 MG VIAL IVP SCH (08:15)
--- NOTE | 2016-09-28 08:48 | Discharge Summary ---
Date of Encounter: 09/28/16 Time of Encounter: 08:30 - Discharge Diagnosis (1) Subacromial bursitis of right shoulder joint Priority: Primary Status: Resolved Comments: Resolved Right shoulder bursitis. Elevated ESR and CRP. D/c home with Bactrim Body fluid culture from the right shoulder aspiration - negative Orthopedics following. (2) Hypertension Priority: Secondary Status: Chronic Comments: uncontrolled. d/c once BP is better controlled Continue home dose of Lisinopril Qualifiers: Hypertension type: essential hypertension Qualified Code(s): I10 - Essential (primary) hypertension (3) COPD (chronic obstructive pulmonary disease) Priority: Secondary Status: Acute Comments: stable, not in exacerbation Qualifiers: COPD type: chronic bronchitis Chronic bronchitis type: simple Qualified Code(s): J41.0 - Simple chronic bronchitis (4) Morbid obesity with BMI of 45.0-49.9, adult Priority: Secondary Status: Chronic Comments: lifestyle modification. encourage weight loss - Discharge Medications Prescriptions: Sulfamethoxazole/Trimeth DS [Bactrim DS] 1 each PO BID 10 Days Home Medications: Gabapentin [Neurontin] 600 mg PO TID 01/02/15 [History] Levothyroxine [Synthroid] 100 mcg PO DAILY 01/02/15 [History] Lisinopril [Zestril] 40 mg PO DAILY 01/02/15 [History] Omeprazole [PriLOSEC] 40 mg PO DAILY 01/02/15 [History] Aspirin Enteric Coated [Aspirin EC] 325 mg PO DAILY #21 tablet. 01/14/16 [Rx] Ropinirole HCl [Requip] 0.5 mg PO HS 01/14/16 [History] Sennosides [Senna] 17.2 mg PO BID 01/14/16 [History] ALPRAZolam [Xanax 0.5 MG Tablet] 0.5 mg PO HS #20 tablet 01/16/16 [Rx] Albuterol Sulfate [Ventolin Hfa] 2 puff IH Q4H PRN 09/25/16 [History] Meloxicam 15 mg PO DAILY 09/25/16 [History] Oxycodone HCl [Roxicodone 30 MG Immed Release] 30 mg PO Q6HR PRN 09/25/16 [ History] Sulfamethoxazole/Trimeth DS [Bactrim DS] 1 each PO BID 10 Days 09/28/16 [Rx] Allergies/Adverse Reactions: Allergies doxycycline Allergy (Verified 09/25/16 10:54) Hives Date of admission: 09/25/16 10:49 Primary care physician: Agustin Jacobo MD Anticipated date of discharge: 09/28/16 - Patient Status Disposition: Home, Self-Care Condition: Fair Functional capacity at discharge: independent ambulation Overall status at discharge: patient is back to baseline - Discharge Instructions Follow Up With: Giuliana Hickey PAC [Physician Advisory Services Associate] - (October 02, 2016 at 8:15 AM) Agustin Jacobo MD [Primary Care Provider] - (October 08, 2016 at 9:20AM) - Diet and Activity Activity: resume usual activities as tolerated Diet: advance to your usual diet, low fat, low cholesterol Hospital course: Ms. Donaldson is a 56 year old female with past medical history of arthritis, asthma , COPD, GERD, fibromyalgia, hypertension, rheumatoid arthritis, osteoporosis, probable disease. Patient presented to the ED with complaints of right shoulder pain. Patient also had a fever spike and had difficulty moving her shoulder. Symptoms and gradual progressed. She apparently been having similar complaints for the past few months.Patient's ESR and CRP were elevated. MRI of the right shoulder showed severe subacromial and subdeltoid bursitis with multiple intrinsic septations. It was initially thought the patient had septic joint of the right shoulder. Interventional radiology was consulted. Patient had a right shoulder bursa aspiration ultrasound-guided. Patient tolerated the procedure well. Fluid was sent for culture. Anaerobic culture is negative at present. Right shoulder Bursa fluid culture shows no growth. Patient was started on IV vancomycin. Orthopedics was consulted and they have been following up with the patient. Patient's white count has been within normal limits. Patient did not have any fever spike. No complications during her stay in the hospital. Her symptoms of right shoulder pain have now improved. She has normal range of motion. Orthopedics has stated that no surgery is indicated at this time and no I&D is needed. Patient now seems to be back to baseline. She is ambulating well. She is tolerating oral diet well. Patient states she feels better and wants to go home today. She states she will follow up with orthopedics and PCP as outpatient. Patient has been explained about her condition and plan of care in detail. She understood and agreed. has no unanswered questions. Patient is being discharged with Bactri patient's blood pressure has been elevated during her stay in the hospital. She was on IV hydralazine when necessary. Her home dose of lisinopril has been restarted. Patient states her blood pressure is elevated because she is anxious to get home and wants to be discharged. No other acute events or complications during the stay in the hospital. - Time Spent with Patient Total time spent providing and/or coordinating discharge services: Less than 30 minutes - Constitutional Vitals: Temp Pulse Resp BP Pulse Ox 97.9 F 92 18 181/96 99 09/28/16 07:06 09/28/16 07:06 09/28/16 07:06 09/28/16 07:06 09/28/16 07:06 General appearance: Present: cooperative, A&O X 3, morbidly obese, no acute distress, answers questions appropriately - Head Head exam: Present: atraumatic - ENT ENT exam: Present: mucous membranes moist - Neck Neck exam general surgery: Present: supple - Respiratory Respiratory exam: Present: CTAB. Absent: rhonchi, wheezes - Cardiovascular Cardiovascular exam: Present: RRR, +S1, +S2 - GI/Abdominal GI/Abdominal exam: Present: soft. Absent: guarding, tenderness - Extremities Exam Extremities exam: Present: radial pulses palpable and symetrical. Absent: cyanotic, pedal edema Additional comments: right shoulder no tenderness, Full ROM+ - Neurological Exam Neurological exam: Present: alert, oriented X3, no focal deficits - VTE Documentation of Mechanical Device: Venous foot pump, device
[2016-09-28] MEDS ORDERED: ALPRAZolam 0.5 MG TABLET PO ONE (09:51)
[2016-09-28] MEDS ORDERED: Vancomycin 1,250 MG in D5% in Water 250 ML IVPB ONE ×2 (11:00→12:00)
[2016-09-28 11:34] VITALS: BP 171/109
[2016-09-28] MEDS ORDERED: Aminoglycoside Consult 1 EACH MC ONE (13:39)
== END 2016-09-28 13:40 | disposition home or self-care (01) ==
LOC: 3NENU 04:53 → EMEROO 04:53 → INTOOBSV 10:49 → 3NENU 11:39
PROVIDERS: ADMIT Internal Medicine; ATTEND Internal Medicine Endocrinology, Diabetes & Metabolism
PROC: IRFLUID (2016-09-25 11:30)

== ENCOUNTER 2021-12-16 17:27 | Observation (INO) ==
[2021-12-16] MEDS ORDERED: Iopamidol - 370 500 ML MLS IVP ONE ×2 (18:53→22:08)
[2021-12-16] MEDS ORDERED: Morphine Sulfate 2 MG/ML SYRINGE IVP ONE (19:15)
[2021-12-16 19:58] LABS: Basophils % 0.2 %; Eosinophils % 0.2 %; Hematocrit 43.5 % (35.3-44.9); Hemoglobin 14.3 g/dL (11.5-15.4); Immature Granulocytes % 0.4 % (0-4); Lymphocytes % 21.5 %; Mean Corpuscular HGB Conc 32.9 g/dL (31.6-35.5); Mean Corpuscular Hemoglobin 26.7 pg (28.0-33.3); Mean Corpuscular Volume 81.2 fL (83.0-100.0); Mean Platelet Volume 9.2 fL (9.4-12.4); Monocytes # 0.5 K/mcL (0.0-1.3); Monocytes % 10.6 %; Neutrophils # 3.2 K/mcL (1.6-8.9); Platelet Count 230 K/mcL (140-400); Red Blood Count 5.36 M/mcL (3.82-4.97); Segmented Neutrophils % 67.1 %; White Blood Count 4.8 K/mcL (4.3-11.1)
[2021-12-16 20:05] LABS: Prothrombin Time 11.3 Seconds (9.4-12.1)
[2021-12-16 20:19] LABS: BUN/Creatinine Ratio 11 (6-26); Blood Urea Nitrogen 10 mg/dL (8-23); Calcium 9.8 mg/dL (8.6-10.3); Carbon Dioxide 29 mEq/L (23-29); Chloride 100 mEq/L (98-107); Ethanol < 10 mg/dL (Less than 10); Glucose 138 mg/dL (70-105); Osmolality,Calculated 283 (280-300); Potassium 4.1 mEq/L (3.5-5.1); Sodium 136 mEq/L (136-145); Troponin I < 0.03 ng/mL (< 0.04)
[2021-12-16] MEDS ORDERED: NIFEdipine Immed Rel 10 MG CAPSULE PO ONE (21:12)
[2021-12-16] MEDS ORDERED: Naloxone 0.4 MG/ML INJ IVP PRN (22:01)
[2021-12-16] MEDS ORDERED: Ondansetron ODT 4 MG TAB.RAPDIS SL PRN (22:01)
[2021-12-16] MEDS ORDERED: Melatonin 3 MG TABLET PO PRN (22:01)
[2021-12-16] MEDS ORDERED: *HR* Labetalol 20 MG/4 ML SYRINGE IVP PRN (22:29)
[2021-12-16] MEDS: Gabapentin 300 MG CAPSULE PO SCH (23:18)
[2021-12-16] MEDS ORDERED: 0.9 % Sodium Chloride 1,000 ML IVC SCH (23:45)
[2021-12-17 03:44] LABS: Hematocrit 38.2 % (35.3-44.9); Mean Corpuscular HGB Conc 32.5 g/dL (31.6-35.5); Mean Corpuscular Hemoglobin 26.4 pg (28.0-33.3); Mean Corpuscular Volume 81.3 fL (83.0-100.0); Mean Platelet Volume 9.4 fL (9.4-12.4); Platelet Count 203 K/mcL (140-400); Red Cell Distribution Width 15.1 % (11.5-14.5); White Blood Count 5.3 K/mcL (4.3-11.1)
[2021-12-17 03:50] LABS: Hemoglobin 12.4 g/dL (11.5-15.4)
[2021-12-17 04:08] LABS: Albumin 3.5 g/dL (3.5-5.7); Albumin/Globulin Ratio 1.3 (1.1-2.2); Bilirubin,Total 0.5 mg/dL (0.3-1.0); Calcium 8.9 mg/dL (8.6-10.3); Globulin 2.8 g/dL (2.4-3.5); Phosphorous 3.2 mg/dL (2.7-4.5); Potassium 3.7 mEq/L (3.5-5.1); Total Protein 6.3 g/dL (6.4-8.9)
[2021-12-17 05:56] LABS: Bilirubin,Urine Negative (Negative); Blood,Urine Negative (Negative); Clarity,Urine Clear (Clear); Color,Urine Light-Yellow (Yellow); Glucose,Urine (UA) Normal (Normal); Ketones,Urine Negative (Negative); Leukocyte Esterase,Urine Negative (Negative); Nitrite,Urine Negative (Negative); Protein,Urine Negative (Neg-Trace); Specific Gravity,Urine > 1.030 (1.010-1.025); Urobilinogen,Urine Normal (Normal)
[2021-12-17] MEDS: lisinopriL 20 MG TABLET PO SCH (08:38)
[2021-12-17] MEDS: Gabapentin 300 MG CAPSULE PO SCH ×3 (08:38→20:58)
[2021-12-17] MEDS ORDERED: amLODIPine 5 MG TABLET PO SCH (09:00)
[2021-12-17] MEDS ORDERED: *HR* LORazepam 2 MG/ML VIAL IVP ONE (12:30)
[2021-12-17] MEDS ORDERED: Fluticasone Propionate Nasal 50 MCG/SPRAY BOTTLE NS PRN (13:38)
[2021-12-17] MEDS ORDERED: NON-FORMULARY MEDICATION 1 EACH EACH (Gabapentin [Neurontin] 600 MG Tablet) PO SCH (15:00)
[2021-12-17] MEDS: *HR* Heparin 5,000 UNIT/ML VIAL SQ SCH (17:15)
[2021-12-17] MEDS ORDERED: rOPINIRole 1 MG TABLET PO SCH (21:00)
[2021-12-18 02:36] LABS: Basophils % 0.5 %; Eosinophils # 0.1 K/mcL (0.0-0.6); Eosinophils % 1.5 %; Hemoglobin 11.4 g/dL (11.5-15.4); Immature Granulocytes % 0.3 % (0-4); Lymphocytes # 1.6 K/mcL (0.6-4.6); Lymphocytes % 40.4 %; Mean Corpuscular HGB Conc 31.7 g/dL (31.6-35.5); Mean Corpuscular Hemoglobin 26.3 pg (28.0-33.3); Mean Corpuscular Volume 82.9 fL (83.0-100.0); Mean Platelet Volume 9.3 fL (9.4-12.4); Monocytes # 0.4 K/mcL (0.0-1.3); Monocytes % 10.5 %; Neutrophils # 1.9 K/mcL (1.6-8.9); Platelet Count 191 K/mcL (140-400); Red Blood Count 4.34 M/mcL (3.82-4.97); Red Cell Distribution Width 15.6 % (11.5-14.5); Segmented Neutrophils % 46.8 %
[2021-12-18 02:55] LABS: Calcium 8.6 mg/dL (8.6-10.3); Potassium 4.4 mEq/L (3.5-5.1)
[2021-12-18 05:24] VITALS: TEMP 97.9
[2021-12-18] MEDS: *HR* Heparin 5,000 UNIT/ML VIAL SQ SCH (05:54)
[2021-12-18 07:15] VITALS: PULSE 79; O2SAT 97
[2021-12-18] MEDS ORDERED: amLODIPine 5 MG TABLET PO SCH (07:45)
[2021-12-18] MEDS: lisinopriL 20 MG TABLET PO SCH (08:39)
[2021-12-18] MEDS: Gabapentin 300 MG CAPSULE PO SCH (08:39)
[2021-12-18] MEDS ORDERED: Torsemide 20 MG TABLET PO SCH (09:00)
[2021-12-18 09:16] VITALS: BP 156/86
== END 2021-12-18 12:23 | disposition home or self-care (01) ==
LOC: EMEROOARM 17:27 → 3BNU 17:27 → SUATTDRO 22:03 → 3BNU 22:38
PROVIDERS: ADMIT Internal Medicine; ATTEND Internal Medicine